=== PATIENT | male | born 2005 | race Two or more races ===

== ENCOUNTER 2024-07-03 19:32 | Emergency (ER) | payer MEDICAID ==
[~2024-07-03] VITALS: Ht 182.9 cm; Wt 76.6 kg
[2024-07-03] MEDS ORDERED: CIPR500T4 PO (21:36)
[2024-07-03] MEDS ORDERED: IBUP-1456 PO (21:36)
[2024-07-03 21:41] VITALS: BP 142/86; PULSE 68; RESP 16; TEMP 98.6; O2SAT 100
[2024-07-03] MEDS: cefTRIAXone SOD 1,000 MG VL IM ONE (22:16)
[2024-07-03] MEDS: TETANUS-DIPTH-ACEL PERTUSSIS 0.5ML SYR Tdap IM ONE (22:16)
== END 2024-07-03 22:21 | disposition home or self-care (01) ==
LOC: ER 19:32
DX: S91.332A Puncture wound without foreign body, left foot, initial encounter (principal); Z79.899 Other long term (current) drug therapy; W22.8XXA Striking against or struck by other objects, initial encounter; Y93.89 Activity, other specified; Y92.89 Other specified places as the place of occurrence of the external cause; Y99.8 Other external cause status
CPT/HCPCS: 90471; 90715; 96372; 99284; J0696

== ENCOUNTER 2024-10-29 23:53 | Emergency (ER) | payer MEDICAID ==
[~2024-10-29] VITALS: Ht 183.5 cm; Wt 81.3 kg
[~2024-10-29 23:53] MED LIST: CIPR500T4 PO; IBUP-1456 PO
--- NOTE | 2024-10-30 00:33 | ED.PDOC ---
Musculoskeletal HPI Comments 18-year-old male presents to ER with complaints of left ankle pain x1 day. Patient states that he rolled" his left ankle while playing baseball a 8:20 p.m. prior to arrival to ER and has since been experiencing 8/10 pain and swelling to left lateral ankle and left foot. Denies use of medications for current symptoms. Patient presents to ER ambulatory on arrival, favoring right leg on ambulation and notes he does have numbness/tingling to left ankle/left foot . Denies left tib/fib pain, left knee pain, left hip pain, head injury/LOC or any further symptoms/complaints Chief Complaint: Lower Extremity Time Seen by MD: 00:15 Primary Care Provider: UNKNOWN Reviewed Notes: Nurses Notes, Medications, Allergies Allergies: Coded Allergies: NO KNOWN ALLERGIES (Unverified , 07/03/24) Home Meds Active Scripts Ibuprofen (Ibuprofen) 800 Mg Tab, 1 TAB PO TID PRN, #30 TAB 0 Refills Prov:SUZI MIRADNA 10/30/24 Ibuprofen (Ibuprofen) 800 Mg Tab, 1 TAB PO TID PRN, #30 TAB 0 Refills Prov:SUZI MIRANDA 07/03/24 Ciprofloxacin Hcl (Ciprofloxacin Hcl) 500 Mg Tab, 1 TAB PO BID for 7 Days, #14 TAB 0 Refills Prov:SUZI MIRANDA 07/03/24 Information Source: Patient Past Medical History PAST MEDICAL HISTORY: Denies Surgical History: Denies all surgeries Family History Family History: Unknown Social History Smoker: Non-Smoker Alcohol: Denies ETOH Use Drugs: Denies Drug Use Lives In: Home Constitutional: denies: chills, diaphoresis, fatigue, fever, malaise, sweats, weakness, others EENTM: denies: blurred vision, double vision, ear bleeding, ear discharge, ear drainage, ear pain, ear ringing, eye pain, eye redness, hearing loss, mouth pain, mouth swelling, nasal discharge, nose bleeding, nose congestion, nose pain, photophobia, tearing, throat pain, throat swelling, voice changes, others Respiratory: denies: cough, hemoptysis, orthopnea, SOB at rest, shortness of breath, SOB with excertion, stridor, wheezing, others Cardiovascular: denies: chest pain, dizzy spells, diaphoresis, Dyspnea on exertion, edema, irregular heart beat, left arm pain, lightheadedness, palpitations, PND, syncope, others Gastrointestinal: denies: abdomen distended, abdominal pain, blood streaked bowels, constipated, diarrhea, dysphagia, difficulty swallowing, hematemesis, melena, nausea, poor appetite, poor fluid intake, rectal bleeding, rectal pain, vomiting, others Genitourinary: denies: burning, dysuria, flank pain, frequency, hematuria, incontinence, penile discharge, penile sore, pain, testicle pain, testicle swelling, urgency, others Neurological: reports: others (As stated in HPI) Musculoskeletal: reports: others (As stated in HPI) Integumetry: reports: others (As stated in HPI) Allergic/Immunocompromised: denies: Difficulty Healing, Frequent Infections, Hives, Itching, others Hematologic/Lymphatic: denies: anemia, blood clots, easy bleeding, easy bruising, swollen glands, others Endocrine: denies: excessive hunger, excessive sweating, excessive thirst, excessive urination, flushing, intolerance to cold, intolerance to heat, unexplained weight gain, unexplained weight loss, others Psychiatric: denies: anxiety, bipolar disorder, depression, hopeless, panic disorder, schizophrenia, sleepless, suicidal, others Physical Exam General Appearance: No Apparent Distress HEENT: PERRL/EOMI Neck: Full Range of Motion, Non-Tender, Normal Respiratory: Chest Non-Tender, Lungs Clear, No Accessory Muscle Use, No Respiratory Distress, Normal Breath Sounds Cardiovascular: No Murmur, No Gallop, Regular Rate/Rhythm Breast Exam: Deferred Gastrointestinal: NOT DONE Genitalia: Deferred Pelvic: Deferred Rectal: Deferred Extremities: Normal capillary refill, Normal range of motion Musculoskeletal : Extremity Location: Ankle (TTP/mild swelling noted to the left lateral m alleolus and left lateral foot. No further skin changes noted. Patient favors right leg on ambulation due to pain localized to left lateral malleolus and left lateral foot. Pulses intact) Neurologic: Alert, tour agent II-XII nml as Tested, No Motor Deficits, Normal Affect, Normal Mood, No Sensory Deficits Cerebellar Function: Normal Reflexes: Normal Skin: Dry, Normal Color, Warm Peripheral Pulses: 2+ femoral (R), 2+ femoral (L), 2+ dorsalis pedis (R), 2+ dorsalis pedis (L) Lymphatic: No Adenopathy Was a procedure done? Was a procedure done?: No Sedation Sedation?: No Differential Diagnosis EXT Differential Diagnosis: Fracture, Dislocation, Neurovascular injury X-Ray, Labs, Meds, VS Vital Signs Date Time Temp Pulse Resp B/P (MAP) Pulse Ox O2 Delivery O2 Flow Rate FiO2 10/30/24 00:30 98.4 70 20 133/72 (92) 96 PATIENT: LISBET HUSSEIN RACCT: [id number]: [id number] : 2005 LOC: ER ROOM / BED: / AGE / SEX: 18 / M ADM STATUS: REG ER SERVICE ORDERING PHYSICIAN: SUZI MIRANDA PROCEDURE(s): LANKL - L ANKLE 3 VIEW REASON: left ankle pain ORDER NUMBER(s): [id number], ACCESSION NUMBER(s): [id number] XY L ANKLE 3 VIEW, INDICATION: left ankle pain TECHNICAL DATA: Multiple views of the ankle and foot. COMPARISON: None FINDINGS: No fracture is identified. Joint spaces are maintained. Alignment is anatomic. Soft tissues are within normal limit. IMPRESSION: No acute fracture or dislocation of the left ankle. ATED BY: SOLITARIO KIM DO DICTATED DATE/TIME: 10/30/24146 SIGNED BY: SOLITARIO KIM DO SIGNED DATE/TIME: 10/30/24146 CC: PATIENT: LISBET HUSSEIN ACCT: [id number] UNIT: [id number] : 2005 LOC: ER ROOM / BED: / AGE / SEX: 18 / M ADM STATUS: REG ER SERVICE ORDERING PHYSICIAN: SUZI MIRANDA PROCEDURE(s): LANKL - L ANKLE 3 VIEW REASON: left ankle pain ORDER NUMBER(s): [id number], ACCESSION NUMBER(s): [id number] XY L ANKLE 3 VIEW, INDICATION: left ankle pain TECHNICAL DATA: Multiple views of the ankle and foot. COMPARISON: None FINDINGS: No fracture is identified. Joint spaces are maintained. Alignment is anatomic. Soft tissues are within normal limit. IMPRESSION: No acute fracture or dislocation of the left ankle. ATED BY: SOLITARIO KIM DO DICTATED DATE/TIME: 10/30/24146 SIGNED BY: SOLITARIO KIM DO SIGNED DATE/TIME: 10/30/24146 CC: Left ankle x-ray reviewed Left foot x-ray reviewed Patient neurovascularly intact Toradol 60 mg IM ordered Julio wrap applied Crutches ordered, patient educated on proper use. Was advised to use at all times Advised on rest/no strenuous activity, elevation and alternate ice on/off as needed for pain/swelling Advised to follow up with PCP and orthopedics in 1-2 days Patient verbalized understanding and agreeable with current plan of care Advised to return to ER immediately if symptoms worsen Images Reviewed?: Images reviewed and evaluated by me Time of 1ST Reevaluation: 00:24 Reevaluation 1ST: N/A Patient Education/Counseling: Diagnosis, Treatment, Prognosis, Need For Follow Up Family Education/Counseling: No Family Present Departure 1 Departure Time of Disposition: 00:42 Impression: Primary Impression: Left ankle sprain Qualified Codes: S93.402A - Sprain of unspecified ligament of left ankle, initial encounter Additional Impression: Sprain of foot, left Qualified Codes: S93.602A - Unspecified sprain of left foot, initial encounter Disposition: HOME / SELF CARE / HOMELESS Condition: Stable e-Prescriptions Ibuprofen (Ibuprofen) 800 Mg Tab 1 TAB PO TID PRN, #30 TAB 0 Refills Prov: SUZI MIRANDA 10/30/24 Discharged With: Friend Critical Care Note Critical Care Time?: No Stability Stability form required: No Heart Score Heart Score: Heart Score Response (Comments) Value History N/A 0 EKG N/A 0 Age N/A 0 Risk Factors N/A 0 Troponin N/A 0 Total 0 SUZI MIRANDA Oct 30, 2024 00:33
--- NOTE | 2024-10-30 01:49 | DVH ---
XY L ANKLE 3 VIEW, INDICATION: left ankle pain TECHNICAL DATA: Multiple views of the ankle and foot. COMPARISON: None FINDINGS: No fracture is identified. Joint spaces are maintained. Alignment is anatomic. Soft tissues are wit hin normal limit. IMPRESSION: No acute fracture or dislocation of the left ankle.
[2024-10-30] MEDS: KETOROLAC TROMETH 60MG/2ML VIAL IM ONE (02:12)
[2024-10-30 03:23] VITALS: BP 134/67; PULSE 71; RESP 16; TEMP 97.8; O2SAT 99
== END 2024-10-30 03:29 | disposition home or self-care (01) ==
LOC: ER 23:53
DX: S93.602A Unspecified sprain of left foot, initial encounter (principal); S93.402A Sprain of unspecified ligament of left ankle, initial encounter; Y99.8 Other external cause status; X58.XXXA Exposure to other specified factors, initial encounter; Y93.64 Activity, baseball; Y92.89 Other specified places as the place of occurrence of the external cause; Z79.899 Other long term (current) drug therapy
CPT/HCPCS: 73610; 73630; 96372; 99284; J1885

== ENCOUNTER 2024-12-04 20:59 | Emergency (ER) | payer MEDICAID ==
[~2024-12-04] VITALS: Ht 180.3 cm; Wt 81.1 kg
[2024-12-04 21:06] VITALS: BP 140/93
[2024-12-04] MEDS ORDERED: AMOX875T3 PO (21:29)
--- NOTE | 2024-12-04 21:29 | ED.PDOC ---
Eye-HPI HPI Comments 18-year-old male complaining of right ear pain. States pain started three days ago. Intermittent coughing. Nothing makes it better, nothing makes it worse. No fevers no chills. Chief Complaint: Earache Time Seen by MD: 21:09 Primary Care Provider: UNKNOWN Reviewed Notes: Nurses Notes Allergies: Coded Allergies: NO KNOWN ALLERGIES (Unverified , 07/03/24) Home Meds Active Scripts Ibuprofen (Ibuprofen) 800 Mg Tab, 1 TAB PO TID PRN, #30 TAB 0 Refills Prov:SUZI MIRANDA 10/30/24 Ibuprofen (Ibuprofen) 800 Mg Tab, 1 TAB PO TID PRN, #30 TAB 0 Refills Prov:SUZI MIRANDA 07/03/24 Ciprofloxacin Hcl (Ciprofloxacin Hcl) 500 Mg Tab, 1 TAB PO BID for 7 Days, #14 TAB 0 Refills Prov:SUZI MIRANDA 07/03/24 Information Source: Patient Mode of Arrival: Ambulatory Timing: Minutes Past Medical History PAST MEDICAL HISTORY: Denies Surgical History: Denies all surgeries Family History Family History: Unknown Social History Smoker: Non-Smoker Alcohol: Denies ETOH Use Drugs: Denies Drug Use Lives In: Home Constitutional: denies: chills, diaphoresis, fatigue, fever, malaise, sweats, weakness, others EENTM: denies: blurred vision, double vision, ear bleeding, ear discharge, ear drainage, ear pain, ear ringing, eye pain, eye redness, hearing loss, mouth pain, mouth swelling, nasal discharge, nose bleeding, nose congestion, nose pain, photophobia, tearing, throat pain, throat swelling, voice changes, others Respiratory: denies: cough, hemoptysis, orthopnea, SOB at rest, shortness of breath, SOB with excertion, stridor, wheezing, others Cardiovascular: denies: chest pain, dizzy spells, diaphoresis, Dyspnea on exertion, edema, irregular heart beat, left arm pain, lightheadedness, palpitations, PND, syncope, others Gastrointestinal: denies: abdomen distended, abdominal pain, blood streaked bowels, constipated, diarrhea, dysphagia, difficulty swallowing, hematemesis, melena, nausea, poor appetite, poor fluid intake, rectal bleeding, rectal pain, vomiting, others Genitourinary: denies: burning, dysuria, flank pain, frequency, hematuria, incontinence, penile discharge, penile sore, pain, testicle pain, testicle swelling, urgency, others Neurological: denies: dizziness, fainting, headache, left sided numbness, left sided weakness, numbness, paresthesia, pre-existing deficit, right sided numbness, right sided weakness, seizure, speech problems, tingling, tremors, weakness, others Musculoskeletal: denies: back pain, gout, joint pain, joint swelling, muscle pain, muscle stiffness, neck pain, others Integumetry: denies: bruises, change in color, change in hair/nails, dryness, laceration, lesions, lumps, rash, wounds, others Allergic/Immunocompromised: denies: Difficulty Healing, Frequent Infections, Hives, Itching, others Hematologic/Lymphatic: denies: anemia, blood clots, easy bleeding, easy bruising, swollen glands, others Endocrine: denies: excessive hunger, excessive sweating, excessive thirst, excessive urination, flushing, intolerance to cold, intolerance to heat, unexplained weight gain, unexplained weight loss, others Psychiatric: denies: anxiety, bipolar disorder, depression, hopeless, panic disorder, schizophrenia, sleepless, suicidal, others Physical Exam General Appearance: No Apparent Distress, Normal HEENT: Pharynx Normal, TM Abnormal (L) (Erythemic, and bulging), TMs Normal Neck: Full Range of Motion, Non-Tender, Normal, Normal Inspection Respiratory: Chest Non-Tender, Lungs Clear, No Accessory Muscle Use, No Respir atory Distress, Normal Breath Sounds Cardiovascular: No Edema, No JVD, No Murmur, No Gallop, Normal Peripheral Pulses, Regular Rate/Rhythm Breast Exam: Deferred Gastrointestinal: No Organomegaly, Non Tender, No Pulsatile Mass, Normal Bowel Sounds, Soft Genitalia: Deferred Pelvic: Deferred Rectal: Deferred Extremities: No calf tenderness, Normal capillary refill, Normal inspection, Normal range of motion, Non-tender, No pedal edema Musculoskeletal : Apperance: Normal Neurologic: Alert, government minister II-XII nml as Tested, No Motor Deficits, Normal Affect, Normal Mood, No Sensory Deficits Cerebellar Function: Normal Reflexes: Normal Skin: Dry, Normal Color, Warm Lymphatic: No Adenopathy Was a procedure done? Was a procedure done?: No EENT DIFF Eye: N/A Ear: Abrasion, Cerumen Impaction, Otitis Externa, Otitis Media, Perforation X-Ray, Labs, Meds, VS Vital Signs Date Time Temp Pulse Resp B/P (MAP) Pulse Ox O2 Delivery O2 Flow Rate FiO2 12/04/24 21:06 98.2 59 18 140/93 (109) 97 X-Ray, Labs, Meds, VS Comment Imaging: X-rays and CT scans were reviewed and interpreted by this provider, imaging shows no fractures and no pathological disease. Pending radiology review. Laboratory: Labs reviewed and interpreted by this provider. No significant abnormalities noted. Patient has prior medical visits reviewed. Med reconciliation performed Vital signs reviewed Time of 1ST Reevaluation: 21:29 Reevaluation 1ST: Improved Patient Education/Counseling: Diagnosis, Treatment, Need For Follow Up (Follow up with PCP in the next 2-4 days.) Family Education/Counseling: Diagnosis Departure 1 Departure Time of Disposition: 21:28 Impression: Primary Impression: Otitis media Qualified Codes: H66.002 - Acute suppurative otitis media without spontaneous rupture of ear drum, left ear Disposition: HOME / SELF CARE / HOMELESS Condition: Fair e-Prescriptions Amoxicillin Trihydrate (Amoxicillin) 875 Mg Tab 1 TAB PO BID for 7 Days, #14 TAB Prov: ERICKA RAMIRES 12/04/24 Discharged With: Self Critical Care Note Critical Care Time?: No Stability Stability form required: No Heart Score Heart Score: Heart Score Response (Comments) Value History N/A 0 EKG N/A 0 Age N/A 0 Risk Factors N/A 0 Troponin N/A 0 Total 0 ERICKA RAMIRES Dec 04, 2024 21:29
[2024-12-04 22:07] VITALS: PULSE 60; RESP 18; O2SAT 97
== END 2024-12-04 22:08 | disposition home or self-care (01) ==
LOC: ER 20:59
DX: H66.91 Otitis media, unspecified, right ear (principal); Z79.899 Other long term (current) drug therapy